=== PATIENT | female | born 1985 | race Caucasian/White ===

== ENCOUNTER 2017-07-13 14:20 | Emergency (ER) | payer OTHER ==
[~2017-07-13] VITALS: Ht 165.1 cm; Wt 140.4 kg
[~2017-07-13 14:20] MED LIST: DIVALPROEX SOD250 MG PO; Motrin PO; PEPCID40 MG PO
[2017-07-13 15:44] LABS: HEMATOCRIT 42.6 % (36.0-46.0); HEMOGLOBIN 14.3 G/DL (11.9-15.5); MCH 29.7 PG (29.0-34.0); MCHC 33.6 G/DL (30.0-36.0); MCV 88.6 FL (83-99); PLATELET COUNT 172 K/uL (156-360); RBC DIS.WIDTH-CV 12.8 % (11.8-14.6); RBC DIS.WIDTH-SD 41.2 % (39-53); RED BLOOD COUNT 4.81 M/uL (3.80-5.20); WHITE BLOOD COUNT 9.5 K/uL (4.1-10.2)
[2017-07-13 15:57] LABS: ALBUMIN 4.1 g/dL (3.2-4.8)
[2017-07-13 15:58] LABS: CHLORIDE 107 mEq/L (99-109); SODIUM 139 mEq/L (136-147)
[2017-07-13 16:00] LABS: GLUCOSE 90 mg/dL (70-99); TOTAL PROTEIN 7.3 g/dL (6.4-8.3)
[2017-07-13 16:02] LABS: TOTAL BILIRUBIN 0.7 mg/dL (0.0-1.0)
[2017-07-13 16:03] LABS: ALKALINE PHOSPHATASE 89 IU/L (3-129)
[2017-07-13 16:04] LABS: CREATININE 0.8 mg/dL (0.6-1.3); GFR ESTIMATE (CALCULATED) > 59 mL/min/
[2017-07-13 16:05] LABS: AST (GOT) 21 IU/L (2-34); UREA NITROGEN (BUN) 12 mg/dL (9-23)
[2017-07-13 16:06] LABS: ALT (GPT) 21 IU/L (3-49)
[2017-07-13 16:13] LABS: QUANTITATIVE HCG < 4.0 MIU/ML
[2017-07-13 18:24] VITALS: BP 111/73
== END 2017-07-13 18:28 | disposition home or self-care (01) ==
LOC: EME 14:20
PROVIDERS: Nurse Practitioner Family
DX: H11.31 Conjunctival hemorrhage, right eye (principal); S40.022A Contusion of left upper arm, initial encounter; S40.021A Contusion of right upper arm, initial encounter; S00.11XA Contusion of right eyelid and periocular area, initial encounter; R22.0 Localized swelling, mass and lump, head; Y09 Assault by unspecified means; R56.9 Unspecified convulsions
CPT/HCPCS: 70450; 70486; 80053; 81003; 84702; 85027; 99281; 99285